=== PATIENT | female | born 1990 | race African-American/Black ===

== ENCOUNTER 2025-06-20 16:52 | Emergency (ER) | payer OTHER, SELFPAY ==
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
[2025-06-20 16:57] VITALS: BP 133/99; PULSE 99; RESP 16; TEMP 36.9; O2SAT 100
[2025-06-20 17:37] VITALS: BP 133/104; PULSE 100; RESP 16; O2SAT 100
[2025-06-20 17:45] VITALS: BP 133/95; PULSE 97; RESP 26; O2SAT 97
[2025-06-20 17:46] VITALS: BP 133/95; PULSE 92; RESP 20; TEMP 36.8; O2SAT 99
[2025-06-20 17:55] LABS: Hematocrit 38.3 % (37.0-47.0); Hemoglobin 11.9 g/dL (12.0-15.0); Immature Granulocyte Percent A 0.2 % (0-0.5); Lymphocytes Absolute Auto 1.90 K/mm3 (0.9-3.2); Mean Corpuscular HGB Conc 31.1 g/dl (32-36); Mean Corpuscular Hemoglobin 25.5 pg (26-34); Mean Corpuscular Volume 82.0 fl (80-100); Nucleated Red Blood Cells Absolute Auto 0.000 K/mm3 (0.0-0.012); Nucleated Red Blood Cells Perc 0.0 % (0.0-0.2); Platelet Count Result 361 k/mm3 (150-375); Red Blood Count 4.67 M/mm3 (4.2-5.4); White Blood Count 9.7 K/mm3 (4.5-10.0)
[2025-06-20 18:01] VITALS: BP 141/93; PULSE 104; RESP 15; O2SAT 100
[2025-06-20 18:04] LABS: SPREG INTERNAL CONTROL Positive; Serum Qual hCG Negative
[2025-06-20 18:07] LABS: INR 1.0; Prothrombin Time 13.3 Seconds (11.1-14.7)
[2025-06-20 18:08] LABS: Partial Thromboplastin Time 26.0 Seconds (22.3-36.8)
[2025-06-20 18:10] LABS: Alanine Aminotransferase 15 U/L (6-35); Albumin Level 4.4 g/dL (3.5-5.1); Alkaline Phosphatase 69 U/L (38-126); Anion Gap 13 mmol/L (4-12); Aspartate Amino Transferase 29 U/L (14-36); Bilirubin,Total 0.4 mg/dL (0.2-1.3); Blood Urea Nitrogen 10 mg/dL (7-17); Calcium 8.7 mg/dL (8.4-10.2); Carbon Dioxide 16 mmol/L (22-30); Chloride 109 mmol/L (98-107); Estimated CRCL calculation 84 ml/min; Estimated Glomerular Filt Rate > 60; Glucose 82 mg/dL (65-110); Potassium 4.0 mmol/L (3.4-5.0); Sodium 138 mmol/L (137-145); Total Protein 8.8 g/dL (6.3-8.2)
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
[2025-06-20] MEDS: ACETAMINOPHEN 500 MG TABLET 1000 MG PO (19:50)
--- OUTSIDE RECORDS SUMMARY | 2025-06-20 20:02 | XMS_ITS | Clinical Summary ---
Author Organization [facility] [place] [address] Care Team Providers Care Seismograph Supervisor Name Role Phone Denton[facility]p, Patient Resources Primary Care Provide r Unavailable Source Comments The [facility] EMR consists of medical records from all [facility] ([facility]), the [facility] ([facility]), [facility], as well as other affiliates or partners, to include: [facility] in [place], [place], [facility], [facility], [facility], [facility], [facility], [facility]), [facility], and [facility]. The EMR may not contain all information available for this patient pursuant to the Care Everywhere program, as well as varying phases of implementation.[facility] Allergies No known active allergies Medications * Medications may not be up to date as of this document. Always verifycurrent medications with the patient. Acetaminophen (Tylenol) 500 MG tabIndications:Pa in Take 2 tabs by mouth every 6 hours. Purpose: PAIN 60 tab 2 01/20/20 24 Active valACYclovir HCl (Valtrex) 500 MG tabIndications:In fection Take 1 tab by mouth one time daily. Purpose: INFECTION 90 tab 3 05/27/20 25 Active Levonorgestrel-Et hinyl Estradiol (Lessina) 0.1-20 MG-MCG per tabIndications:In itiation of oral contraception Take 1 tab by mouth one time daily Take as directed 84 tab 4 05/27/20 25 Active Triamcinolone Acetonide 0.1 % ointmentIndicatio ns:Vulvar irritation Apply to affected area twice daily x1 week then once daily at bedtime x2 weeks 30 g 05/27/20 25 Active PLUS PO 025 Discontinu ed(Complet ion of Therapy *Send Cancel Msg to Pharmacy) IRON PO 025 Discontinu ed(Complet ion of Therapy *Send Cancel Msg to Pharmacy) valACYclovir HCl (Valtrex) 500 MG tabIndications:In fection Take 1 tab by mouth 2 times daily. Purpose: INFECTION 60 tab 2 12/08/19 24 025 Discontinu ed(Reorder ) Ibuprofen (Motrin) 600 MG tabIndications:Pa in Take 1 tab by mouth every 6 hours. Purpose: PAIN 60 tab 2 01/20/20 24 025 Discontinu ed(Complet ion of Therapy *Send Cancel Msg to Pharmacy) oxyCODONE HCl 5 MG tabIndications:[place] Pain Take 1 tab by mouth every 4 hours as needed for pain. Purpose: ACUTE PAIN 30 tab 01/20/20 24 025 Discontinu ed(Complet ion of Therapy *Send Cancel Msg to Pharmacy) Norethindrone (Kimmy) 0.35 MG tabIndications:Po stpartum follow-up,Routine follow-up Take 1 tab by mouth one time daily Take as directed. 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 Resolved Problems Problem Noted Date Diagnosed Date Resolved Date Group B Streptococcus regi r state affecting 01/02/2024 02/27/2024 Previous delivery a ffecting 12/08/2023 02/27/2024 Overview (12/08/2023): Posterior placenta; previous section X 3 Obesity affecting in third trimester 07/06/2023 11/09/2023 02/27/2024 delivery delivered 09/05/2022 09/15/2022 Multigravida in third trimester 07/28/2022 02/27/2024 growth restriction antepartum 07/14/2022 07/06/2023 No known health problems 03/28/2022 Overview (03/28/2022): Denies chronic medical problems or medical hospital hospitalization Encounters Date Type Department Care Team Description 05/27/2025 11:30 AM CDT Office Visit [facility] INTERNET MARKETER [address] [place] [address] Merlyn Yun, HEEL MOLDER Encounter for gynecological examination without abnormal finding (Primary Dx); Screening for cervical cancer; Screening examination for STD (sexually transmitted disease); Initiation of oral contraception; HSV-2 seropositive; Vulvar irritation 05/27/2025 Results Follow-Up [facility] INTERNET MARKETER [address] [place] [address] Merlyn Yun, HEEL MOLDER from Last 3 Months Immunizations Immunization Administration Dates Next Due Tetanus/Diphtheria/Acellular Pertussis (Tdap) Vaccine (> 7 Yrs) 12/15/2023,07/28/2022,10/24/2012 Family History Medical History Relation Name Comments Sudden Syndrome (SIDS) Daughter Diabetes Mellitus Father Cancer Breast Maternal Grandmother unknow n age of diagnosis Diabetes Mellitus Paternal Grandmother Bleeding Disorder Absence of Condition Cancer Ovarian Absence of Condition Cancer Uterine Absence of Condition Chromosome Abnormality Absence of Condition Clotting Disorder Absence of Condition Congenital Anomalies Absence of Condition FOB half sister heart anomaly Relation Name Status Comments Daughter Alive Father Maternal Grandmother Paternal Grandmother Social History Tobacco Use Types Packs/Day Years Used Date Smoking Tobacco: Former Cigarettes 0.1 9 2 010 - 2019 Smokeless Tobacco: Never Alcohol Use Standard Drinks/Week Comments Yes 0 (1 standard drink = 0.6 oz pur e alcohol) 1-2 glasses wine per day [facility] Utilities Answer Date Recorded In the past 12 months has th e electric, gas, oil, or water company threatened to shut off services in your home? Yes 01/19/2024 Humiliation, Afraid, Rape, and Kick questionnair e Answer Date Recorded Within the last year, have y ou been afraid of your partner or ex-partner? No 01/19/2024 Within the last year, have y ou been humiliated or emotionally abused in other ways by your partner or ex-partner? No Within the last year, have y ou been kicked, hit, slapped, or otherwise physically hurt by your partner or ex-partner? No 01/19/2024 Within the last year, have y ou been raped or forced to have any kind of sexual activity by your partner or ex-partner? No 01/19/2024 Social Connection and Isolation Panel Answer Date Recorded In a typical week, how many times do you talk on the phone with family, friends, or neighbors? More than three times a week 01/19/2024 How often do you get togethe r with friends or relatives? More than three times a week 01/19/2024 How often do you attend chur or gnosticist services? 1 to 4 times per year 01/19/2024 Do you belong to any clubs o r organizations such as scientology groups, unions, fraternal or athletic groups, or school groups? Yes 01/19/2024 How often do you attend meet ings of the clubs or organizations you belong to? 1 to 4 times per year 01/19/2024 Are you , , di vorced, , never , or living with a partner? 01/19/2024 AUDIT-C Answer Date Recorded Q1: How often do you have a drink containing alc ohol? Never 09/05/2022 Average Number of Drinks Not on file 022 Frequency of Binge Drinking Not on file 08/10 [facility]ational Stress Questionnaire Answer Date Recorded Do you feel stress - tense, restless, nervous, or anxious, or unable to sleep at night because your mind is troubled all the time - these days? Not at all 01/19/2024 Exercise Vital Sign Answer Date Recorde d On average, how many days pe r week do you engage in moderate to strenuous exercise (like a brisk walk)? 5 days 01/19/2024 On average, how many minutes do you engage in exercise at this level? 30 min 01/19/2024 Hunger Vital Sign Answer Date Recorded Within the past 12 months, y ou worried that your food would run out before you got the money to buy more. Never true 01/19/20 24 Within the past 12 months, t he food you bought just didn't last and you didn't have money to get more. Never true 01/19/2024 PRAPARE - Transportation Answer Date Re corded In the past 12 months, has l ack of transportation kept you from medical appointments or from getting medications? No 01/07 In the past 12 months, has l ack of transportation kept you from meetings, work, or from getting things needed for daily living? No 01/19/2024 Housing Stability Answer Date Recorded In the last 12 months, was t here a time when you were not able to pay the mortgage or rent on time? Yes 01/19/2024 [address] of Places Lived in the Last Year Not on f ile 01/19/2024 In the last 12 months, was t here a time when you did not have a steady place to sleep or slept in a usp (including now)? No 01/19/[address] Depression Scale Answer Date Recorded [address] Depression Scale Total 8 02/27/2024 The thought of harming myself has occurred to me . Never 02/27/2024 Loneliness Answer Date Recorded How often do you feel that you lack companionshi p? Hardly ever 01/19/2024 How often do you feel left out? Hardly ever 01/19/2024 How often do you feel isolated from others? Hard ly ever 01/19/2024 UCLA Score 3 01/19/2024 Financial Resource Strain Answer Date R ecorded How hard is it for you to pa y for the very basics like food, housing, medical care, and heating? 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 file No t on file Not on file Last Filed Vital Signs Vital Sign Reading Time Taken Comments Blood Pressure 111/80 05/27/2025 11:36 AM CDT Pulse 73 05/27/2025 11:36 AM CDT Temperature 36.8 C (98.2 F) 01/21/2024 7:49 AM CDT Respiratory Rate 16 01/21/2024 7:49 AM CDT Oxygen Saturation 97% 01/21/2024 7:49 AM CDT Inhaled Oxygen Concentration - - Weight 85 kg (187 lb 6.4 oz) 02/27/2024 9:43 AM CDT Height 160 cm (5' 3) 05/27/2025 11:36 AM CDT Body Mass Index 33.2 02/27/2024 9:43 AM CDT Plan of Treatment Upcoming Encounters Date Type Department Care Team (Late st Contact Info) Description 05/28/2026 11:15 AM CDT Office Visit [facility] INTERNET MARKETER [address] [place] [address] Merlyn Yun, HEEL MOLDER [address] [place] [address] Health Maintenance Due Date Last Done Comments MMR Vaccination (1 of 1 - Standard series) 01/10/1992 Lipid Screening 01/10/2008 Hepatitis B Vaccination (1 of 3 - 19+ 3-dose series) 2010 HPV Vaccination (1 - 3-dose SCDM series) 2018 Influenza Vaccination (#1) 2025 Pap Smear 05/27/2028 05/27/2025 Cervical Cancer Screening 05/27/2030 HPV/Cotest 05/27/2030 05/27/2025 DTaP/Tdap/Td Vaccination (4 - Td or Tdap) 12/14/2033 12/15/2023, 07/28/2022, 10/24/2012 Zoster Vaccination (1 of 2) 2041 RSV Vaccination ( or age 60+) (1 - 1-dose 75+ series) 2066 HIV One Time Screening (Age 18 to 65) Completed 07/06/2023, 07/21/2022, 08/14/2009, Additional history exists Hepatitis C One Time Screening (Age 18 to 80) Completed 07/06/2023, 03/28/2022, 03/11/2009 Hepatitis A Vaccination Aged Out No l onger eligible based on patient's age to complete this topic Hib Vaccination Aged Out No longer el igible based on patient's age to complete this topic Meningococcal (MCV4) Vaccination Aged Out No longer eligible based on patient's age to complete this topic Meningococcal B Vaccination Aged Out No longer eligible based on patient's age to complete this topic Pneumococcal Vaccination: Pediatrics and At-Risk Patients Aged Out No longer eligible based on patient's age to complete this topic Polio Vaccination Aged Out No longer eligible based on patient's age to complete this topic Procedures Procedure Name Priority Date/Time Associated Diagnosis Comments CYTOLOGY, PAP Routine 05/27/2025 12:26 PM CDT Screening for cervical cancer HUMAN PAPILLOMA (HPV), HIGH RISK Routine 05/27/2025 12:26 PM CDT Screening for cervical cancer TRICHOMONAS VAGINALIS BY AMPLIFIED PROBE TECHNIQUE Routine 05/27/2025 12:26 PM CDT Screening examination for STD (sexually transmitted disease) C TRACHOMATIS AND N GONORRHOEAE BY AMPLIFIED PROBE TECHNIQUE Routine 05/27/2025 12:26 PM CDT Screening examination for STD (sexually transmitted disease) HCG, QUAL, URINE, POC Routine 05/27/2025 11:30 AM CDT Initiation of oral contraception HEPATITIS C AB WITH REFLEX TO NAAT Routine 07/06/2023 11:54 AM CDT Amenorrhea HIV (1 & 2) Routine 07/06/2023 11:54 AM CDT Amenorrhea from Last 3 Months or Most Recently Relevant to Health Maintenance Results * CYTOLOGY, PAP (05/27/2025 12:26 PM CDT) Case Report Gynecological Cytology Case: [id number] Authorizing Provider: Merlyn Yun APRN Collected: 05/27/2025 1226 Ordering Location: [facility] Received: 05/27/[address] [place] [address] INTERNET MARKETER First Screen: Rene Brasher Specimen: Imaged, Routine Screening Pap, Thin Prep 11:52 AM CDT [facility] Pap Source Cervical (Includes Ectocervix and Endocervix) 5 11:52 AM CDT [facility] Specimen Adequacy Satisfactory for Evaluation 5 11:52 AM CDT [facility] Endocervical Component No endocervical component is present 5 11:52 AM CDT [facility] Cytologic Interpretation Negative for intraepithelial lesion or malignancy 5 11:52 AM CDT [facility] at 1152 CDT LMP 04/27/2025 5 11:52 AM CDT [facility] Menstrual Status Irregular Menses 5 11:52 AM CDT [facility] HPV Reflex HPV Co-Testing (recommended in women 30-65 yrs). 5 11:52 AM CDT [facility] Disclaimer This Pap test was computer imaged by the Thin Prep Imaging System prior to review by the trade facilitator . The Pap test is a screening procedure to aid in the detection of cervical cancer and its precursors. It should not be used as the sole means to detect cervical cancer and intraepithelial lesions. Both false positive and false negative Pap tests have been noted in the medical literature. 11:52 AM CDT [facility] Genitourinary PAPANICOLAOU SMEAR SPECIMEN / Unknown Collection / Unknown 05/27/2025 12:26 PM CDT 05/27/2025 2:11 PM CDT Merlyn Yun APRN LAB - PATHOLOGY Final Result Performing Organization Address [facility] Co de Phone Number [facility] [address] [place] [phone] * C TRACHOMATIS AND N GONORRHOEAE BY AMPLIFIED PROBE TECHNIQUE (05/27/2025 12:26 PM CDT) Chlamydia Amplified Probe Negative Negative 05/28/2025 11:09 AM CDT [facility] GC Amplified Probe Negative Negative 05/28/2025 11:09 AM CDT [facility] Genital Collection / Unknown 05/27/2025 12:26 PM CDT 05/27/2025 2:02 PM CDT Narrative [facility] - 05/28/2025 11:09 AM CDT Amplified DNA Assay should not be used for the evaluation of suspected sexual abuse or for other medico-legal indications. us Merlyn Yun APRN LAB - NON-BLOOD Final Result Performing Organization Address [facility] Co de Phone Number [facility] [address] [place] [id number] * TRICHOMONAS VAGINALIS BY AMPLIFIED PROBE TECHNIQUE (05/27/2025 12:26 PM CDT) Trichomonas Amplified Probe Negative Negative 05/28/2025 12:53 PM CDT [facility] Genital CERVIX UTERI STRUCTURE / Unknown Collection / Unknown 05/27/2025 12:26 PM CDT 05/27/2025 2:02 PM CDT Narrative [facility] - 05/28/2025 12:53 PM CDT Amplified DNA Assay should not be used for the evaluation of suspected sexual abuse or for other medico-legal indications. us Merlyn [address] CARO LAB - NON-BLOOD Final Result [facility] [address] [place] [address] * HUMAN PAPILLOMA (HPV), HIGH RISK (05/27/2025 12:26 PM CDT) HPV, High Risk Not Detected Not Detected 05/28/2025 5:46 PM CDT [facility] Genitourinary PAPANICOLAOU SMEAR SPECIMEN / Unknown Collection / Unknown 05/27/2025 12:26 PM CDT 05/28/2025 7:47 AM CDT Narrative [facility] - 05/28/2025 5:46 PM CDT Expected results for High Risk HPV: Not detected (High risk HPV types 16, 18, 31, 33, 35, 39, 45, 51, 52, 56, 58, 59, 66, 68) Detection of a high risk HPV type may prompt followup colposcopy for evidence of HPV lesions. These lesions have the potential of developing into cervical cancer. HPV infections are common; the progression to cancer is not. However, it is generally accepted that HPV infection and the associated lesions are a necessary precusor to cervical cancer. Test Limitations: A Not Detected result does not exclude the possibility of infection with a high risk HPV type. Virus quantitation is not possible due to the nature of the specimen. Additional Information: A positive result (Detected) indicates the presence from one or more of the following high risk HPV types: 16, 18, 31, 33, 35, 39, 45, 51, 52, 56, 58, 59, 66, 68. This assay does not genotype the virus. A negative result does not exclude the possibility of infection with a high risk HPV type. False negative results may be due to low levels of HPV infected cells, inhibitory substances, inappropriate or inadequate sampling, or insufficient cellular material. Inadequate specimen collection, processing and storage may invalidate test results. This test should not be used as the only criterion to form a clinical conclusion; instead, results should be correlated with other test results, patient symptoms and clinical presentation. This test is approved by the U.S. Food and Drug Administration. us Merlyn Yun APRN LABORATORY Final Result Performing Organization Address [facility] Co de Phone Number [facility] [address] [place] [address] * HCG, QUAL, URINE, POC (05/27/2025 11:30 AM CDT) Urine Negative [facility] UCG QC OK? Yes [facility] Urine 05/27/2025 11:3 0 AM CDT us Merlyn Yun APRN POINT OF CARE TESTING Final R esult Performing Organization Address [facility] Co de Phone Number [facility] [address] [place] [address] * HIV (1 & 2) (07/06/2023 11:54 AM CDT) HIV-1 HIV-2 Ab Negative Negative 07/06/2023 7:28 PM CDT [facility] Blood Venipuncture / Unknown 07/06/2023 11:54 AM CDT 07/06/2023 11:54 AM CDT us Merlyn Yun APRN LABORATORY Final Result Performing Organization Address [facility] Co de Phone Number [facility] [address] [place] [address] * HEPATITIS C AB (07/06/2023 11:54 AM CDT) Hepatitis C Ab Nonreactive Nonreactive 07/06/2023 7:35 PM CDT [facility] Blood Venipuncture / Unknown 07/06/2023 11:54 AM CDT 07/06/2023 11:54 AM CDT us Merlyn Yun APRN LABORATORY Final Result [facility] [address] [place] [address] from Last 3 Months or Most Recently Relevant to Health Maintenance Insurance COUNT INCLUDES [facility] ([facility]) Care Teams Seismograph Supervisor Relationship Specialty Start Date End Date [facility], Patient Resources PCP - General Unknown Specialty 03/10/22
--- OUTSIDE RECORDS SUMMARY | 2025-06-20 20:03 | XMS_ITS | Encounter Summary ---
Author Organization [facility] [place] [address] Care Team Providers Care Dermatology Procedural Physician Name Role Phone Omaira, Patient Resources Primary Care Provide r Unavailable Encounter Details Date Type Department Care Team (Late st Contact Info) Description 05/27/2025 Results Follow-Up [facility] EXTENSION EDUCATOR [address] [place] [address] Merlyn Yun, SUPPLIER QUALITY ENGINEER [address] [place] [address] Social History Tobacco Use Types Packs/Day Years Used Date Smoking Tobacco: Former Cigarettes 0.1 2018 Smokeless Tobacco: Never Alcohol Use Standard Drinks/Week Comments Yes 0 (1 standard drink = 0.6 oz pur e alcohol) 1-2 glasses wine per day [facility] Utilities Answer Date Recorded In the past 12 months has [employer] gas, oil, or water [employer] threatened to shut off services in your [...] How often do you attend chur or caodaism services? 1 to 4 times per year 01/19/2024 Do you belong to any clubs o r organizations such as sabianism groups, unions, fraternal or athletic groups, or [...] of Binge Drinking Not on file 08/10 [facility] - Occupational Stress Questionnaire Answer Date [...] place to sleep or slept in a retirement (including now)? 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 Answer Date of Assessment Author No 09/07/2022 12:53 PM Frederick Sharma RN * Are you blind or do you have serious difficulty seeing, even when wearing glasses? Answer Date of Assessment Author No 09/07/2022 12:53 PM Frederick Sharma RN * Do you have serious difficulty walking or climbing stairs? Answer Date of Assessment Author No 09/07/2022 12:53 PM Frederick Sharma RN * Do you have serious difficulty dressing or bathing? Answer Date of Assessment Author No 09/07/2022 12:53 PM Frederick Sharma RN * Because of a physical, mental, or emotional condition, do you have difficulty doing errands alone such as visiting a doctor's office or shopping? Answer Date of Assessment Author No 09/07/2022 12:53 PM Frederick Sharma RN documented as of this encounter Mental Status * Because of a physical, mental, or emotional condition, do you have serious difficulty concentrating, remembering, or making decisions? Answer Entry Date Author No 09/07/2022 12:53 PM Frederick Sharma RN documented in this encounter Plan of Treatment Upcoming Encounters Date Type Department Care Team (Late st Contact Info) Description 05/28/2026 11:15 AM CDT Office Visit [facility] EXTENSION EDUCATOR [address] [place] [address] Merlyn Yun, SUPPLIER QUALITY ENGINEER [address] [place] [address] documented as of this encounter Visit Diagnoses Not on filedocumented in this encounter Care Teams Dermatology Procedural Physician Relationship Specialty Start Date End Date [facility], Patient Resources PCP - General Unknown Specialty 03/10/22 documented as of this encounter
--- OUTSIDE RECORDS SUMMARY | 2025-06-20 20:03 | XMS_ITS | Clinical Summary ---
Author Organization [facility] Address [address] [place] [id number] Care Team Providers Care Legal Office Administrator Name Role Phone Unavailable Primary Care Provider Unavailabl e Source Comments This disclosure is being made pursuant to the [employer] program and maynot contain all information available regarding this patient.[facility] Allergies No known active allergies Medications albuterol 108 (90 Base) MCG/ACT inhaler Inhale 2 puffs into the lungs every 4 (four) hours as needed for Wheezing. 1 Inhaler 07/22/2020 Active fluticasone HFA (FLOVENT HFA) 44 MCG/ACT inhaler Inhale 2 puffs into the lungs 2 (two) times daily. Rinse mouth after use. 1 g 1 12/30/2020 Active norgestrel-ethin yl estradiol 0.3-30 MG-MCG per tablet Take 1 (one) tablet by mouth daily. 84 tablet 08/20/2021 Active Active Problems Problem Noted Date Diagnosed Date Shortness of breath 08/12/2020 Immunizations Immunization Administration Dates Next Due Tdap 10/24/2012 Family History Medical History Relation Name Comments Diabetes Father Cancer Maternal Grandfather Cancer Maternal Grandmother Cancer Paternal Grandfather Hyperlipidemia Paternal Grandfather Diabetes Paternal Grandmother Relation Name Status Comments Father Maternal Grandfather Maternal Grandmother Paternal Grandfather Paternal Grandmother Social History Tobacco Use Types Packs/Day Years Used Date Smoking Tobacco: Every Day Cigarettes 0.1 6 Smokeless Tobacco: Never Tobacco Cessation:Ready to Q uit: No Comments:used to smoke 1/2 pk for 5 years Alcohol Use Standard Drinks/Week Comments Yes 0 (1 standard drink = 0.6 oz pur e alcohol) occ;3/weeek AUDIT-C Answer Date Recorded Q1: How often do you have a drink containing alc ohol? 2-3 times a week 10/28/2020 Q2: How many drinks containi ng alcohol do you have on a typical day when you are drinking? 1 or 2 10/28/2020 Frequency of Binge Drinking Not on file 10/10 PHQ-2 Answer Date Recorded PHQ-2 Total Score (RETIRED) 0 10/10 Comments No Sex and Gender Information Value Date Recorded Sex Assigned at Not on file Legal Sex Female 3:06 PM CDT Gender Identity Not on file Sexual Orientation Not on file Last Filed Vital Signs Vital Sign Reading Time Taken Comments Blood Pressure 110/78 10/28/2020 9:07 AM PASTOR Pulse 80 10/28/2020 9:07 AM PASTOR Temperature 36.4 C (97.6 F) 10/28/2020 9:07 AM PASTOR Respiratory Rate 16 10/28/2020 9:07 AM PASTOR Oxygen Saturation 100% 07/22/2020 1:53 PM CDT Inhaled Oxygen Concentration - - Weight 94.3 kg (208 lb) 10/28/2020 9:07 AM PASTOR Height 157.5 cm (5' 2) 10/28/2020 9:07 AM PASTOR Body Mass Index 38.04 10/28/2020 9:07 AM PASTOR Plan of Treatment Health Maintenance Due Date Last Done Comments HPV 1990 Lab-Cholesterol Screening 1990 Lab-Hepatitis C Screening 1990 Hepatitis B Vaccine (1 of 3 - 19+ 3-dose series) 2010 HPV Vaccine (9-26yo & Shared Decision 27-45yo) (1 - 3-dose SCDM series) 2018 Cervical Cancer Screening 10/29/2020 Annual Wellness Visit 10/28/2021 10/28/2020 Tetanus/Pertussis Vaccine Teen/Adult (2 - Td or Tdap) 10/24/2022 10/24/2012 Pap Smear 10/28/2023 10/28/2020 COVID-19 Vaccine ( - 2023-2 5 season) 2025 Influenza Vaccine (#1) 2025 Zoster (Shingles) Vaccine 50 + (1 of 2) 2041 RSV Adult (1 - 1-dose 75+ series) 2066 HIB Vaccine Aged Out No longer eligi ble based on patient's age to complete this topic Hepatitis A Vaccine Aged Out No longe r eligible based on patient's age to complete this topic IPV Vaccine Aged Out No longer eligi ble based on patient's age to complete this topic Meningococcal Conjugate Vaccine Aged Out No longer eligible based on patient's age to complete this topic Pneumococcal Vaccines 0-49 yo Discontinued RSV < 20 Months Aged Out No longer el igible based on patient's age to complete this topic Procedures Procedure Name Priority Date/Time Associated Diagnosis Comments LIQUID-BASED PAP SPECIMEN Routine 10/28/2020 9:50 AM PASTOR Encounter for annual routine gynecological examination from Last 3 Months or Most Recently Relevant to Health Maintenance Results * Liquid-Based Pap Specimen (10/28/2020 9:50 AM PASTOR) CERVIX UTERI STRUCTURE / Unknown 10/28/2020 9:50 AM PASTOR 10/28/2020 Narrative [facility] - 11/02/2020 4:38 PM PASTOR CASE: [id number] PATIENT: KAIA MCKEON Patient: KAIA MCKEON Location: Age: 30 Birthdate: 1990 Sex: F Submitted By: STAS BETTENCOURT DO Copies To: Gynecological Cytology Date Collected: 10/28/2020 9:50:00 AM LMP:No LMP recorded Pap Type: Liquid based Pap smear - 1 slide Specimen Source:Cervix Date Received: 10/28/2020 Clinical Information:HPV Reflex with ASCUS only; CCU NURSE Status: patient is having regular periods; Diagnosis: Z01.419 Encounter for gynecological examination (general) (routine) without abnormal findings Reason for Pap Smear: SPECIMEN ADEQUACY: Satisfactory for evaluation; transformation zone component present. INTERPRETATION: Negative for intraepithelial lesion or malignancy. MICROORGANISMS: Shift in regina suggestive of bacterial vaginosis. COMMENTS: Disclaimer: This pap test has been evaluated with [employer] [facility]. Cervicovaginal cellular samples are subject to both false negative and false positive findings. This is well documented in the medical literature. The patient's cervicovaginal cellular sample result should be interpreted in the proper clinical context. Correlation with the patient's clinical history and physical findings is recommended. If there is a visible mucosal lesion, a biopsy is recommended regardless of the cytology results Technical and diagnostic services related to Pap smear performed at [facility], [address] [place] [id number]. Final Diagnosis performed by Christina Kwon Electronically signed 11/02/2020 9:03:07AM Stas Bettencourt DO PATHOLOGY/CYTOLOGY ORDERABLES Final Result [facility] [place], [place] from Last 3 Months or Most Recently Relevant to Health Maintenance Insurance [facility] OUT OF STATE
[2025-06-20 21:58] VITALS: BP 124/81; PULSE 99; RESP 18; O2SAT 100
== END 2025-06-20 22:00 | disposition home or self-care (01) ==
PROVIDERS: Emergency Provider Physician Assistant
DX: S91.312A Laceration without foreign body, left foot, initial encounter (principal); S16.1XXA Strain of muscle, fascia and tendon at neck level, initial encounter; V89.2XXA Person injured in unspecified motor-vehicle accident, traffic, initial encounter
CPT/HCPCS: 12002; 36415; 70450; 71260; 72125; 73620; 73630; 74177; 80053; 84703; 85025; 85610; 85730; 99284; A9270; Q9967